=== PATIENT | male | born 1955 | race Caucasian/White ===

== ENCOUNTER 2019-10-16 10:20 | Day surgery (SDC) | payer OTHER, SELFPAY ==
[~2019-10-16] VITALS: Ht 180.3 cm; Wt 109.3 kg
[2019-10-16] MEDS ORDERED: MEPERIDINE HCL/PF 100 MG/ML AMP IM ONE (11:25)
[2019-10-16] MEDS ORDERED: PROPOFOL 200MG/ 20ML VIAL (DIPRIVAN) IV ONE (11:25)
[2019-10-16] MEDS ORDERED: fentaNYL CITRATE/PF 100 MCG/2 ML AMP IVP ONE (11:25)
[2019-10-16] MEDS ORDERED: DEXAMETHASONE SOD PHOSPHATE 4 MG/ML VIAL IVP ONE (11:25)
[2019-10-16] MEDS ORDERED: MIDAZOLAM HCL 5 MG/5 ML VIAL IVP ONE (11:25)
[2019-10-16] MEDS ORDERED: LR 1,000 ML IV.SOLN IV ONE (11:25)
[2019-10-16] MEDS ORDERED: SEVOFLURANE 15 MIN GAS INH ONE (11:25)
[2019-10-16] MEDS ORDERED: ONDANSETRON HCL 4 MG/2 ML VIAL IVP ONE (11:25)
[2019-10-16] MEDS ORDERED: ONDANSETRON HCL 4 MG/2 ML VIAL IVP PRN (12:30)
[2019-10-16] MEDS ORDERED: LR 1,000 ML IV SCH (12:30)
[2019-10-16] MEDS ORDERED: MEPERIDINE HCL/PF 25 MG/ML DISP.SYRIN IVP PRN (12:30)
[2019-10-16] MEDS ORDERED: HYDROcodone/ACETAMIN 5-325 MG TAB (NORCO/ VICODIN) PO ONE (13:45)
[2019-10-16] MEDS ORDERED: HYDROcodone/ACETAMIN 5-325 MG TAB (NORCO/ VICODIN) ONE (14:01)
[2019-10-16 17:04] VITALS: BP_SYST 163
== END 2019-10-16 14:45 | disposition home or self-care (01) ==
LOC: SMU 10:20 → SDS 10:20
PROVIDERS: ATTEND Orthopaedic Surgery
DX: M23.242 Derangement of anterior horn of lateral meniscus due to old tear or injury, left knee (principal); M23.252 Derangement of posterior horn of lateral meniscus due to old tear or injury, left knee; M23.204 Derangement of unspecified medial meniscus due to old tear or injury, left knee; Z88.8 Allergy status to other drugs, medicaments and biological substances; M17.12 Unilateral primary osteoarthritis, left knee; I10 Essential (primary) hypertension; E78.5 Hyperlipidemia, unspecified; E66.9 Obesity, unspecified; Z68.34 Body mass index [BMI] 34.0-34.9, adult
CPT/HCPCS: 29880; J1100; J2175; J2250; J2405; J2704; J3010; J7120